=== PATIENT | female | born 1980 | race Caucasian/White ===

== ENCOUNTER 2021-09-01 10:45 | Outpatient (CLI) | payer OTHER | END 2021-09-01 11:07 | disposition home or self-care (01) | LOC: SONOGRAMA 10:45 | PROVIDERS: ATTEND Surgery | DX: D24.1 Benign neoplasm of right breast (principal); D24.2 Benign neoplasm of left breast; N60.11 Diffuse cystic mastopathy of right breast; N60.12 Diffuse cystic mastopathy of left breast ==

== ENCOUNTER 2021-09-22 06:44 | Day surgery (SDC) | payer OTHER | END 2021-09-22 18:00 | disposition home or self-care (01) | LOC: CIR.AMB 06:44 | PROVIDERS: ATTEND Surgery | DX: D24.1 Benign neoplasm of right breast (principal); D24.2 Benign neoplasm of left breast; Z20.822 Contact with and (suspected) exposure to COVID-19 ==

== ENCOUNTER 2022-10-12 06:44 | Day surgery (SDC) | payer OTHER ==
[~2022-10-12] VITALS: Ht 162.6 cm; Wt 99.8 kg
== END 2022-10-12 17:00 | disposition home or self-care (01) ==
LOC: CIR.AMB 06:44
PROVIDERS: ATTEND Surgery
DX: D24.1 Benign neoplasm of right breast (principal); Z88.2 Allergy status to sulfonamides; Z86.16 Personal history of COVID-19
CPT/HCPCS: 19301; 19281; L8699